=== PATIENT | female | born 1995 | race Caucasian/White ===

== ENCOUNTER 2020-07-01 18:28 | Emergency (ER) | payer MEDICAID ==
[~2020-07-01] VITALS: Ht 154.9 cm; Wt 72.7 kg
[2020-07-01 20:38] LABS: GLUCOSE,POINT OF CARE 91 MG/DL (70-110)
[2020-07-01 21:05] VITALS: BP 110/64
== END 2020-07-01 21:34 | disposition home or self-care (01) ==
LOC: EMS 18:28
DX: R55 Syncope and collapse (principal); F41.9 Anxiety disorder, unspecified; I10 Essential (primary) hypertension
CPT/HCPCS: 82962; 93005; 99283

== ENCOUNTER 2020-07-13 22:46 | Emergency (ER) | payer MEDICAID ==
[~2020-07-13] VITALS: Ht 154.9 cm; Wt 86.4 kg
[2020-07-14 00:38] LABS: BASOPHILS % (AUTO) 0.6 % (0.0-2.0); EOSINOPHILS % (AUTO) 3.2 % (1.0-6.0); HEMATOCRIT 42.2 % (36-46); HEMOGLOBIN 14.4 g/dL (12.0-16.0); LYMPHOCYTES # (AUTO) 2.3 K/uL (1.0-4.8); LYMPHOCYTES % (AUTO) 30.5 % (22.0-44.0); MEAN CORPUSCULAR HEMOGLOBIN 33.8 pg (26.0-34.0); MEAN CORPUSCULAR HGB CONC 34.2 G/dL (31.0-37.0); MEAN CORPUSCULAR VOLUME 99 fL (80-100); MONOCYTES # (AUTO) 0.4 K/uL (0.1-1.0); MONOCYTES % (AUTO) 4.8 % (2.0-9.0); NEUTROPHILS # (AUTO) 4.5 K/uL (1.8-7.7); NEUTROPHILS % (AUTO) 60.9 % (40.0-70.0); PLATELET COUNT (AUTO) 206 K/uL (150-450); RED BLOOD CELL COUNT(AUTO) 4.26 MIL/uL (4.00-5.20); RED CELL DISTRIBUTION WIDTH 12.1 % (11.5-14.5)
[2020-07-14 00:48] LABS: ANION GAP 10 mmol/L (8-16); CARBON DIOXIDE 26 mmol/L (22-29); CHLORIDE 102 mmol/L (98-107); CREATININE 0.71 mg/dL (0.60-1.30); GLOMERULAR FILTR. RATE CALC > 60 mL/min (>60); GLUCOSE,RANDOM 88 mg/dL (70-110); POTASSIUM 3.4 mmol/L (3.5-5.1); SODIUM SERUM 138 mmol/L (136-145); UREA NITROGEN, BLOOD 9 mg/dL (7-18)
[2020-07-14 00:55] LABS: LACTIC ACID 1.1 mmol/L (0.4-2.0)
[2020-07-14 01:12] LABS: ALANINE AMINOTRANSFERASE 23 U/L (12-78); ALBUMIN 4.1 g/dL (3.4-5.0); ALKALINE PHOSPHATASE 90 U/L (46-116); ASPARTATE AMINOTRANSFERASE 14 U/L (15-37); BILIRUBIN,TOTAL 0.4 mg/dL (0.1-1.0); CREATINE KINASE, TOTAL ONLY 209 U/L (26-192); HCG,QUANTITATIVE < 1 mIU/mL (0-6); TOTAL PROTEIN, SERUM 7.7 g/dL (6.4-8.2)
[2020-07-14 02:00] VITALS: BP 127/73
== END 2020-07-14 02:15 | disposition home or self-care (01) ==
LOC: EMS 22:49
DX: G40.909 Epilepsy, unspecified, not intractable, without status epilepticus (principal); I10 Essential (primary) hypertension
CPT/HCPCS: 80053; 82550; 83605; 84702; 85025; 99283

== ENCOUNTER 2021-06-02 18:12 | Inpatient (IN) | payer MEDICAID ==
[~2021-06-02] VITALS: Ht 154.9 cm; Wt 82.6 kg
[2021-06-02 19:27] LABS: BASOPHILS % (AUTO) 0.6 % (0.0-2.0); EOSINOPHILS % (AUTO) 2.4 % (1.0-6.0); HEMATOCRIT 38.2 % (36-46); HEMOGLOBIN 13.1 g/dL (12.0-16.0); LYMPHOCYTES # (AUTO) 1.5 K/uL (1.0-4.8); LYMPHOCYTES % (AUTO) 28.2 % (22.0-44.0); MEAN CORPUSCULAR HEMOGLOBIN 33.1 pg (26.0-34.0); MEAN CORPUSCULAR HGB CONC 34.2 G/dL (31.0-37.0); MEAN CORPUSCULAR VOLUME 97 fL (80-100); MONOCYTES # (AUTO) 0.4 K/uL (0.1-1.0); MONOCYTES % (AUTO) 6.9 % (2.0-9.0); NEUTROPHILS # (AUTO) 3.3 K/uL (1.8-7.7); NEUTROPHILS % (AUTO) 61.9 % (40.0-70.0); PLATELET COUNT (AUTO) 201 K/uL (150-450); RED BLOOD CELL COUNT(AUTO) 3.95 MIL/uL (4.00-5.20); RED CELL DISTRIBUTION WIDTH 12.3 % (11.5-14.5)
[2021-06-02 19:37] LABS: ANION GAP 2 mmol/L (8-16); CALCIUM, TOTAL 9.1 mg/dL (8.8-10.5); CARBON DIOXIDE 33 mmol/L (22-29); CHLORIDE 105 mmol/L (98-107); CREATININE 0.79 mg/dL (0.60-1.30); GLOMERULAR FILTR. RATE CALC > 60 mL/min (>60); GLUCOSE,RANDOM 69 mg/dL (70-110); POTASSIUM 3.4 mmol/L (3.5-5.1); SODIUM SERUM 140 mmol/L (136-145); UREA NITROGEN, BLOOD 8 mg/dL (7-18)
[2021-06-02 19:50] LABS: ALANINE AMINOTRANSFERASE 22 U/L (12-78); ALBUMIN 3.9 g/dL (3.4-5.0); ALKALINE PHOSPHATASE 72 U/L (46-116); ASPARTATE AMINOTRANSFERASE 13 U/L (15-37); BILIRUBIN,TOTAL 0.3 mg/dL (0.1-1.0); HCG,QUANTITATIVE < 1 mIU/mL (0-6); TOTAL PROTEIN, SERUM 8.5 g/dL (6.4-8.2)
[2021-06-03] MEDS ORDERED: LORazepam 2 MG/ML VIAL IM ONE (03:15)
[2021-06-03] MEDS ORDERED: HALOPERIDOL LACTATE 5 MG/ML VIAL IM ONE (03:15)
[2021-06-03] MEDS ORDERED: DiphenhydrAMINE HCL 50 MG/ML VIAL IM ONE (03:15)
[2021-06-03] MEDS ORDERED: HALOPERIDOL 5 MG TABLET PO PRN (07:15)
[2021-06-03 07:37] LABS: COVID AG,FIA SOURCE NASAL SWAB
[2021-06-03] MEDS: LORazepam 2 MG TABLET PO PRN (17:54)
[2021-06-04] MEDS: ZOLPIDEM TARTRATE 10 MG TABLET PO PRN (02:25)
[2021-06-04 05:15] VITALS: BP 128/86
[2021-06-04 08:23] VITALS: BP 113/60
[2021-06-04] MEDS: SERTRALINE HCL 50 MG TABLET PO SCH (14:20)
[2021-06-04] MEDS: BusPIRone HCL 5 MG TABLET PO SCH ×2 (14:20→20:24)
[2021-06-04] MEDS ORDERED: POTASSIUM CHLORIDE 20 MEQ ER TABLET PO ONE (15:00)
[2021-06-04] MEDS ORDERED: IBUPROFEN 400 MG TABLET PO PRN (15:00)
[2021-06-04] MEDS ORDERED: CloNIDine HCL 0.1 MG TABLET PO PRN (15:00)
[2021-06-04] MEDS ORDERED: LOPERAMIDE HCL 2 MG CAPSULE PO PRN (15:00)
[2021-06-04] MEDS ORDERED: GuaiFENesin/D-METHORPHAN [SUGAR-FREE] 200-20MG/10 ML SYRUP UDCUP PO PRN (15:00)
[2021-06-04] MEDS ORDERED: MAGNESIUM HYDROXIDE SUSPENSION 30 ML UDCUP PO PRN (15:00)
[2021-06-04] MEDS ORDERED: MAG HYDROX/AL HYDROX/SIMETH ES 30 ML SUSPENSION UDCUP PO PRN (15:00)
[2021-06-04] MEDS ORDERED: ONDANSETRON HCL 4 MG TABLET PO PRN (15:00)
[2021-06-04] MEDS ORDERED: PETROLATUM,WHITE 28 GM JELLY TP PRN (15:00)
[2021-06-04] MEDS ORDERED: ALBUTEROL SULFATE HFA 90 MCG/PUFF 8 GM INHALER IH PRN (15:00)
[2021-06-04] MEDS ORDERED: ACETAMINOPHEN 325 MG TABLET PO PRN (15:00)
[2021-06-04] MEDS ORDERED: DOCUSATE SODIUM 100 MG CAPSULE PO PRN (15:00)
[2021-06-04] MEDS ORDERED: NICOTINE 14 MG/24 HOUR PATCH TD PRN (15:00)
[2021-06-04 16:14] VITALS: BP 120/75
[2021-06-04] MEDS: LevETIRAcetam 500 MG TABLET PO SCH (16:28)
[2021-06-05 01:00] VITALS: BP 102/62
[2021-06-05 08:07] VITALS: BP 119/59
[2021-06-05] MEDS: LevETIRAcetam 500 MG TABLET PO SCH ×2 (08:24→17:09)
[2021-06-05] MEDS: SERTRALINE HCL 50 MG TABLET PO SCH (08:25)
[2021-06-05] MEDS: BusPIRone HCL 5 MG TABLET PO SCH ×2 (08:25→21:26)
[2021-06-05 16:17] VITALS: BP 120/84
[2021-06-06 01:28] VITALS: BP 124/74
[2021-06-06 08:20] VITALS: BP 99/60
[2021-06-06] MEDS: SERTRALINE HCL 50 MG TABLET PO SCH (08:31)
[2021-06-06] MEDS: BusPIRone HCL 5 MG TABLET PO SCH ×2 (08:31→20:16)
[2021-06-06] MEDS: LevETIRAcetam 500 MG TABLET PO SCH ×2 (08:31→16:14)
[2021-06-06] MEDS: LORazepam 2 MG TABLET PO PRN (09:47)
[2021-06-06 16:14] VITALS: BP 117/74
[2021-06-07 00:50] VITALS: BP 124/65
[2021-06-07 08:26] VITALS: BP 108/56
[2021-06-07] MEDS: SERTRALINE HCL 50 MG TABLET PO SCH (08:46)
[2021-06-07] MEDS: MULTIVITAMINS WITH MINERALS, THERAPEUTIC TABLET PO SCH (08:46)
[2021-06-07] MEDS: LevETIRAcetam 500 MG TABLET PO SCH ×2 (08:46→16:15)
[2021-06-07] MEDS: BusPIRone HCL 5 MG TABLET PO SCH ×2 (08:46→20:01)
[2021-06-07 16:12] VITALS: BP 115/61
[2021-06-07] MEDS: ZOLPIDEM TARTRATE 10 MG TABLET PO PRN (23:38)
[2021-06-08 01:35] VITALS: BP 123/81
[2021-06-08 06:39] VITALS: BP 108/79
[2021-06-08] MEDS: BusPIRone HCL 5 MG TABLET PO SCH (09:27)
[2021-06-08] MEDS: MULTIVITAMINS WITH MINERALS, THERAPEUTIC TABLET PO SCH (09:27)
[2021-06-08] MEDS: SERTRALINE HCL 50 MG TABLET PO SCH (09:27)
[2021-06-08] MEDS: LevETIRAcetam 500 MG TABLET PO SCH (09:27)
[2021-06-08 10:40] VITALS: BP 116/74
[2021-06-08] MEDS ORDERED: SERT-439 PO (11:05)
[2021-06-08] MEDS ORDERED: BUSP5TAB20 PO (11:05)
[2021-06-08] MEDS ORDERED: LEVE500T8 PO (11:05)
== END 2021-06-08 12:15 | disposition home or self-care (01) | DRG 751 ==
LOC: EMS 18:19 → B2S 06-04 00:57
PROVIDERS: ADMIT Psychiatry & Neurology Psychiatry; ATTEND Psychiatry & Neurology Psychiatry
DX: F33.2 Major depressive disorder, recurrent severe without psychotic features (principal); G40.909 Epilepsy, unspecified, not intractable, without status epilepticus; R45.851 Suicidal ideations; E87.6 Hypokalemia; I10 Essential (primary) hypertension; Z20.822 Contact with and (suspected) exposure to COVID-19; K21.9 Gastro-esophageal reflux disease without esophagitis; Z79.899 Other long term (current) drug therapy; Z91.51 Personal history of suicidal behavior
CPT/HCPCS: 80053; 84132; 84702; 85025; 99285; G0480; J1200; J1630; J2060